=== PATIENT | male | born 1965 | race Hispanic/Latino ===

== ENCOUNTER 2018-12-24 14:31 | Outpatient (CLI) | payer OTHER ==
--- NOTE | 2018-12-24 16:10 | RAD ---
LEFT KNEE TWO VIEWS: 12/24/2018 PROVIDED CLINICAL HISTORY: [facility]. FINDINGS: No evidence for fracture or other acute osseous abnormality. Alignment appears anatomic. Joint spac es appear preserved. Vascular calcifications are seen. IMPRESSION: No evidence for an acute osseous abnormality or significant arthropathy. POS: [facility]
== END 2018-12-24 14:32 | disposition home or self-care (01) ==
LOC: BICRAD 14:31
PROVIDERS: ATTEND Internal Medicine
DX: Z02.71 Encounter for disability determination (principal)

== ENCOUNTER 2023-02-18 17:54 | Inpatient (IN) | payer SELFPAY ==
[2023-02-18] MEDS ORDERED: Acetaminophen 325 MG TAB PO PRN (22:46)
[2023-02-18] MEDS ORDERED: Dextrose 50% Abboject 50 ML SYRINGE SLOW IVP PRN (22:58)
[2023-02-18] MEDS ORDERED: Dextrose 5% in Water 1,000 ML IV PRN (22:58)
[2023-02-18] MEDS ORDERED: HumaLOG 300 UNITS/3 ML VIAL SC PRN (22:58)
[2023-02-18] MEDS ORDERED: Sodium Chloride 0.9% 1,000 ML IV SCH (23:00)
[2023-02-18 23:20] VITALS: BMI 24.3
[2023-02-18] MEDS: CEFAZOLIN 1 GM in Sodium Chloride 0.9% 100 ML IVPB SCH (23:31)
[2023-02-19] MEDS ORDERED: CEFAZOLIN 1 GM VIAL SLOW IVP SCH (06:00)
[2023-02-19 06:30] LABS: #Basophils 0.1 thou/uL (0.0-0.2); #Eosinphils 0.4 thou/uL (0.0-0.7); #Lymphocytes 2.3 thou/uL (1.20-3.40); #Monocytes 0.8 thou/uL (0.11-0.59); %Eosinophils 4.1 % (0.0-10.0); %Lymphocytes 23.8 % (21.0-51.0); %Monocytes 7.9 % (0.0-10.0); %Neutrophils 63.3 % (42.0-75.0); Hemoglobin 13.8 g/dL (14.0-18.0); Mean Corpuscular HGB CONC 33.9 g/dL (32.0-36.0); Mean Corpuscular Hemoglobin 33.5 pg (27.0-31.0); Mean Corpuscular Volume 98.9 fl (78.0-98.0); Mean Platelet Volume 7.6 fL (7.4-10.4); Platelet Count 287 10x3/uL (130-400); RBC Distribution Width 12.9 % (11.5-14.5); Red Blood Cell (RBC) Count 4.12 mill/uL (4.70-6.10); White Blood Cell (WBC) Count 9.5 10x3/uL (4.8-10.8)
[2023-02-19 06:54] LABS: ALT (SGPT) 21 U/L (8-55); AST (SGOT) 23 U/L (5-34); Albumin 3.2 g/dL (3.5-5.0); Alkaline Phosphatase 79 U/L (40-110); Anion Gap 13 mmol/L (10-20); BUN (Urea Nitrogen) 18 mg/dL (8.4-25.7); Bilirubin, Total 0.4 mg/dL (0.2-1.2); Calc. Creatinine Clearance 106 mL/min (70-130); Calcium 8.5 mg/dL (7.8-10.44); Carbon Dioxide 22 mmol/L (22-29); Chloride 107 mmol/L (98-107); Estimated GFR 103; Globulin 2.9 g/dL (2.4-3.5); Glucose 116 mg/dL (70-105); Potassium 3.8 mmol/L (3.5-5.1); Protein, Total 6.1 g/dL (6.0-8.3); Sodium 138 mmol/L (136-145)
[2023-02-19] MEDS: Famotidine 20 MG TAB PO SCH ×2 (09:14→20:16)
[2023-02-19] MEDS: CEFAZOLIN 1 GM in Sodium Chloride 0.9% 100 ML IVPB SCH ×3 (09:14→23:21)
[2023-02-19] MEDS ORDERED: CEFAZOLIN 2 GM in Sodium Chloride 0.9% 100 ML IVPB SCH (16:00)
[2023-02-20 05:18] LABS: #Eosinphils 0.3 thou/uL (0.0-0.7); #Lymphocytes 2.1 thou/uL (1.20-3.40); #Monocytes 0.7 thou/uL (0.11-0.59); #Neutrophils 5.3 thou/uL (1.40-6.50); %Basophils 0.4 % (0.0-1.0); %Eosinophils 3.3 % (0.0-10.0); %Lymphocytes 25.3 % (21.0-51.0); %Monocytes 8.7 % (0.0-10.0); %Neutrophils 62.3 % (42.0-75.0); Hemoglobin 14.2 g/dL (14.0-18.0); Mean Corpuscular HGB CONC 33.4 g/dL (32.0-36.0); Mean Corpuscular Hemoglobin 33.3 pg (27.0-31.0); Mean Corpuscular Volume 99.6 fl (78.0-98.0); Mean Platelet Volume 7.7 fL (7.4-10.4); Platelet Count 298 10x3/uL (130-400); RBC Distribution Width 12.8 % (11.5-14.5); Red Blood Cell (RBC) Count 4.26 mill/uL (4.70-6.10); White Blood Cell (WBC) Count 8.5 10x3/uL (4.8-10.8)
[2023-02-20 05:39] LABS: Anion Gap 13 mmol/L (10-20); BUN (Urea Nitrogen) 14 mg/dL (8.4-25.7); CRP (Inflammatory) Less than 0.50 mg/dL (= or < 0.5); Calc. Creatinine Clearance 113 mL/min (70-130); Calcium 8.8 mg/dL (7.8-10.44); Carbon Dioxide 19 mmol/L (22-29); Chloride 110 mmol/L (98-107); Estimated GFR 105; Glucose 110 mg/dL (70-105); Potassium 4.2 mmol/L (3.5-5.1); Sodium 138 mmol/L (136-145)
[2023-02-20] MEDS: HYDROcodone/Acetaminophen 5/325 mg Tablet PO PRN ×4 (05:39→23:19)
[2023-02-20] MEDS ORDERED: Lidocaine 1% (PF) 30 ML VIAL FS SCH (07:30)
[2023-02-20] MEDS: CEFAZOLIN 1 GM in Sodium Chloride 0.9% 100 ML IVPB SCH ×3 (09:10→23:20)
[2023-02-20] MEDS: Famotidine 20 MG TAB PO SCH ×2 (09:11→20:04)
[2023-02-20] MEDS ORDERED: Morphine 4 MG/ML VIAL ONE (12:30)
[2023-02-20] MEDS: metFORMIN 500 MG TAB PO SCH (17:48)
[2023-02-20] MEDS: Atorvastatin Calcium 20 MG TAB PO SCH (20:04)
[2023-02-20] MEDS: Pregabalin 50 MG CAP PO SCH (20:04)
[2023-02-21 05:41] LABS: Hemoglobin A1c 10.5 % (4.0-6.0)
[2023-02-21] MEDS: HYDROcodone/Acetaminophen 5/325 mg Tablet PO PRN ×3 (05:50→20:07)
[2023-02-21] MEDS: CEFAZOLIN 1 GM in Sodium Chloride 0.9% 100 ML IVPB SCH ×3 (08:45→23:01)
[2023-02-21] MEDS: Alogliptin 6.25 MG TAB PO SCH (08:45)
[2023-02-21] MEDS: Pregabalin 50 MG CAP PO SCH ×2 (08:46→20:08)
[2023-02-21] MEDS: Famotidine 20 MG TAB PO SCH ×2 (08:46→20:07)
[2023-02-21] MEDS: Lisinopril/Hydrochlorothiazide 20/25 mg Tablet PO SCH (08:46)
[2023-02-21] MEDS: Empagliflozin 25 MG TAB PO SCH (08:46)
[2023-02-21] MEDS: Amlodipine 10 MG TAB PO SCH (08:46)
[2023-02-21] MEDS: metFORMIN 500 MG TAB PO SCH ×2 (08:46→18:12)
[2023-02-21] MEDS: Atorvastatin Calcium 20 MG TAB PO SCH (20:07)
[2023-02-22] MEDS: HYDROcodone/Acetaminophen 5/325 mg Tablet PO PRN ×4 (04:05→21:24)
[2023-02-22] MEDS: Amlodipine 10 MG TAB PO SCH (08:47)
[2023-02-22] MEDS: Famotidine 20 MG TAB PO SCH ×2 (08:47→21:24)
[2023-02-22] MEDS: Alogliptin 6.25 MG TAB PO SCH (08:47)
[2023-02-22] MEDS: Lisinopril/Hydrochlorothiazide 20/25 mg Tablet PO SCH (08:47)
[2023-02-22] MEDS: metFORMIN 500 MG TAB PO SCH ×2 (08:47→16:45)
[2023-02-22] MEDS: Empagliflozin 25 MG TAB PO SCH (08:48)
[2023-02-22] MEDS: Pregabalin 50 MG CAP PO SCH ×2 (08:48→21:23)
[2023-02-22] MEDS: CEFAZOLIN 1 GM in Sodium Chloride 0.9% 100 ML IVPB SCH ×2 (08:49→16:45)
[2023-02-22] MEDS ORDERED: Ondansetron PF 4 MG/2 ML Vial IVP PRN (16:30)
[2023-02-22] MEDS ORDERED: Loperamide HCl 2 MG CAP PO PRN (16:30)
[2023-02-22] MEDS ORDERED: Loperamide HCl 2 MG CAP PO SCH (16:30)
[2023-02-22] MEDS ORDERED: Saccharomyces boulardii 250 MG CAP PO SCH (16:45)
[2023-02-22] MEDS: Atorvastatin Calcium 20 MG TAB PO SCH (21:23)
[2023-02-23] MEDS: CEFAZOLIN 1 GM in Sodium Chloride 0.9% 100 ML IVPB SCH ×3 (00:16→17:00)
[2023-02-23] MEDS: metFORMIN 500 MG TAB PO SCH (07:47)
[2023-02-23] MEDS: HYDROcodone/Acetaminophen 5/325 mg Tablet PO PRN ×2 (07:47→14:19)
[2023-02-23] MEDS: Lisinopril/Hydrochlorothiazide 20/25 mg Tablet PO SCH (08:24)
[2023-02-23] MEDS: Amlodipine 10 MG TAB PO SCH (08:25)
[2023-02-23] MEDS: Alogliptin 6.25 MG TAB PO SCH (08:25)
[2023-02-23] MEDS: Famotidine 20 MG TAB PO SCH (08:26)
[2023-02-23] MEDS: Pregabalin 50 MG CAP PO SCH (08:26)
[2023-02-23] MEDS: Empagliflozin 25 MG TAB PO SCH (08:26)
[2023-02-23] MEDS ORDERED: Saccharomyces boulardii 250 MG CAP PO SCH (09:00)
[2023-02-23 17:06] VITALS: BP 107/74; TEMP 98.2
== END 2023-02-23 18:30 | disposition home or self-care (01) | DRG 501 ==
LOC: SURG B 17:54
PROVIDERS: ADMIT Family Medicine; ATTEND Family Medicine
PROC: 0M9P0ZZ Drainage of Left Knee Bursa and Ligament, Open Approach (ICD-10-PCS; principal; 2023-02-20)
DX: M71.062 Abscess of bursa, left knee (principal); L02.416 Cutaneous abscess of left lower limb; M00.062 Staphylococcal arthritis, left knee; E11.65 Type 2 diabetes mellitus with hyperglycemia; E78.00 Pure hypercholesterolemia, unspecified; F41.9 Anxiety disorder, unspecified; F32.A Depression, unspecified; B95.62 Methicillin resistant Staphylococcus aureus infection as the cause of diseases classified elsewhere; Z79.899 Other long term (current) drug therapy
CPT/HCPCS: 36415; 36416; 80048; 80053; 83036; 85025; 86140; 87070; 87077; 87186; 87205; 97139; J0690; J0744; J1815; J2001; J2270; J2405; J3490; J7050

== ENCOUNTER 2023-03-08 18:47 | Inpatient (IN) | payer SELFPAY ==
[~2023-03-08 18:47] MED LIST: Iopamidol-370 76% 500 ML MDV (1 ML CHARGE) ONE
[2023-03-08 20:27] VITALS: BMI 24.5
[2023-03-08] MEDS ORDERED: Ondansetron PF 4 MG/2 ML Vial IVP PRN (21:42)
[2023-03-08] MEDS ORDERED: Acetaminophen 325 MG TAB PO PRN (21:42)
[2023-03-08] MEDS ORDERED: Dextrose 5% in Water 1,000 ML IV PRN (21:52)
[2023-03-08] MEDS ORDERED: HumaLOG 300 UNITS/3 ML VIAL SC PRN ×2 (21:52)
[2023-03-08] MEDS ORDERED: Dextrose 50% Abboject 50 ML SYRINGE SLOW IVP PRN (21:52)
[2023-03-08] MEDS ORDERED: Cefepime 1 GM in Sodium Chloride 0.9% 100 ML IVPB SCH (22:00)
[2023-03-08] MEDS: Sodium Chloride 0.9% 1,000 ML IV SCH (22:48)
[2023-03-08 22:52] LABS: Lactic Acid 1.9 mmol/L (0.5-2.2)
[2023-03-08 22:55] LABS: Magnesium 1.6 mg/dL (1.6-2.6)
[2023-03-08 23:51] LABS: SARS-CoV-2 NAA Rapid Test Not Detected (NotDetected)
[2023-03-09 00:48] LABS: Bacteria/HPF None Seen HPF (None Seen); Bilirubin Negative (Negative); Blood, Urine Negative (Negative); CAUTI Indications for Culture Dysuria,urgency,freq; Clarity Clear (Clear); Glucose, Urine (Dipstick) 500 mg/dL (Negative); Ketone, Urine Trace mg/dL (Negative); Leukocyte Negative Leu/uL (Negative); Nitrite Negative (Negative); Protein, Urine (Dipstick) Negative (Neg-Trace); RBC/HPF 0-3 HPF (0-3); Specific Gravity, Urine 1.022 (1.002-1.036); Squamous Epithelial None Seen HPF (0-3); Urobilinogen Normal mg/dL (Less than 2); WBC/HPF 0-3 HPF (0-3)
[2023-03-09 00:55] LABS: Urine Culture Reflex No No
[2023-03-09 04:49] LABS: #Basophils 0.1 thou/uL (0.0-0.2); #Eosinphils 0.3 thou/uL (0.0-0.7); #Lymphocytes 1.4 thou/uL (1.20-3.40); #Monocytes 0.8 thou/uL (0.11-0.59); #Neutrophils 6.4 thou/uL (1.40-6.50); %Basophils 0.8 % (0.0-1.0); %Eosinophils 3.6 % (0.0-10.0); %Lymphocytes 15.5 % (21.0-51.0); %Monocytes 8.5 % (0.0-10.0); %Neutrophils 71.7 % (42.0-75.0); Hemoglobin 13.7 g/dL (14.0-18.0); Mean Corpuscular HGB CONC 32.9 g/dL (32.0-36.0); Mean Corpuscular Hemoglobin 32.7 pg (27.0-31.0); Mean Corpuscular Volume 99.4 fl (78.0-98.0); Mean Platelet Volume 8.3 fL (7.4-10.4); Platelet Count 191 10x3/uL (130-400); RBC Distribution Width 12.8 % (11.5-14.5); Red Blood Cell (RBC) Count 4.18 mill/uL (4.70-6.10); White Blood Cell (WBC) Count 8.9 10x3/uL (4.8-10.8)
[2023-03-09 05:12] LABS: Anion Gap 12 mmol/L (10-20); BUN (Urea Nitrogen) 17 mg/dL (8.4-25.7); Calc. Creatinine Clearance 94 mL/min (70-130); Carbon Dioxide 17 mmol/L (22-29); Chloride 113 mmol/L (98-107); Estimated GFR 100; Glucose 88 mg/dL (70-105); Magnesium 1.6 mg/dL (1.6-2.6); Sodium 138 mmol/L (136-145)
[2023-03-09] MEDS ORDERED: Magnesium 2 GM/50 ML(in water) 2 GM in Premix Bag 1 BAG IVPB SCH (08:30)
[2023-03-09] MEDS ORDERED: Vancomycin 1.5 GRAM/300 ML BAG 1.5 GM in Premix Bag 1 BAG IVPB SCH (10:00)
[2023-03-09] MEDS ORDERED: Cefepime 2 GM in Sodium Chloride 0.9% 100 ML IVPB SCH (10:00)
[2023-03-09] MEDS ORDERED: diphenhydrAMINE 50 MG/ML VIAL IVP PRN (11:29)
[2023-03-09] MEDS: Sodium Chloride 0.9% 1,000 ML IV SCH ×2 (11:40→15:19)
[2023-03-09] MEDS ORDERED: Mupirocin 2% Ointment 22 GM Tube TOP SCH (11:45)
[2023-03-09] MEDS: Mupirocin 2% Ointment 22 GM Tube TOP SCH ×2 (15:13→20:35)
[2023-03-09] MEDS ORDERED: Sodium Chloride 0.9% 500 ML IV SCH (15:15)
[2023-03-09] MEDS ORDERED: metFORMIN 500 MG TAB PO SCH (17:00)
[2023-03-09] MEDS: Alogliptin 6.25 MG TAB PO SCH (18:20)
[2023-03-09] MEDS ORDERED: HYDROcodone/Acetaminophen 5/325 mg Tablet PO PRN (19:07)
[2023-03-09] MEDS: Pregabalin 50 MG CAP PO SCH (20:34)
[2023-03-09] MEDS: Piperacillin/Tazobactam 3.375 GM in Sodium Chloride 0.9% 100 ML IVPB SCH (20:35)
[2023-03-10] MEDS ORDERED: Piperacillin/Tazobactam 3.375 GM VIAL ONE (04:50)
[2023-03-10] MEDS: Piperacillin/Tazobactam 3.375 GM in Sodium Chloride 0.9% 100 ML IVPB SCH ×2 (04:54→14:52)
[2023-03-10 05:01] LABS: #Eosinphils 1.1 thou/uL (0.0-0.7); #Lymphocytes 1.5 thou/uL (1.20-3.40); #Monocytes 0.8 thou/uL (0.11-0.59); %Basophils 0.3 % (0.0-1.0); %Lymphocytes 14.2 % (21.0-51.0); %Monocytes 7.3 % (0.0-10.0); %Neutrophils 67.3 % (42.0-75.0); Hemoglobin 14.4 g/dL (14.0-18.0); Mean Corpuscular HGB CONC 33.2 g/dL (32.0-36.0); Mean Corpuscular Hemoglobin 33.3 pg (27.0-31.0); Mean Platelet Volume 9.1 fL (7.4-10.4); Platelet Count 160 10x3/uL (130-400); RBC Distribution Width 13.2 % (11.5-14.5); Red Blood Cell (RBC) Count 4.33 mill/uL (4.70-6.10); White Blood Cell (WBC) Count 10.4 10x3/uL (4.8-10.8)
[2023-03-10 05:40] LABS: Anion Gap 14 mmol/L (10-20); BUN (Urea Nitrogen) 11 mg/dL (8.4-25.7); Calc. Creatinine Clearance 90 mL/min (70-130); Calcium 8.1 mg/dL (7.8-10.44); Carbon Dioxide 12 mmol/L (22-29); Chloride 116 mmol/L (98-107); Estimated GFR 99; Glucose 85 mg/dL (70-105); Magnesium 1.7 mg/dL (1.6-2.6); Potassium 4.8 mmol/L (3.5-5.1); Sodium 137 mmol/L (136-145)
[2023-03-10] MEDS: Sodium Chloride 0.9% 1,000 ML IV SCH ×2 (07:39→14:52)
[2023-03-10] MEDS ORDERED: Atorvastatin Calcium 20 MG TAB PO SCH (09:00)
[2023-03-10] MEDS ORDERED: Sodium Bicarbonate Tab 325 MG TAB PO SCH (09:00)
[2023-03-10] MEDS: Alogliptin 6.25 MG TAB PO SCH ×2 (09:31→17:23)
[2023-03-10] MEDS: Pregabalin 50 MG CAP PO SCH (09:31)
[2023-03-10] MEDS: Mupirocin 2% Ointment 22 GM Tube TOP SCH ×2 (09:32→15:23)
[2023-03-10 18:07] VITALS: BP 95/64; TEMP 97.5
== END 2023-03-10 18:09 | disposition home or self-care (01) | DRG 872 ==
LOC: 2NO 18:47
PROVIDERS: ADMIT Internal Medicine; ATTEND Family Medicine
DX: A41.9 Sepsis, unspecified organism (principal); N17.9 Acute kidney failure, unspecified; E11.9 Type 2 diabetes mellitus without complications; I10 Essential (primary) hypertension; Z20.822 Contact with and (suspected) exposure to COVID-19; E83.42 Hypomagnesemia; N41.9 Inflammatory disease of prostate, unspecified; E78.5 Hyperlipidemia, unspecified; F41.9 Anxiety disorder, unspecified; F32.A Depression, unspecified; Z90.49 Acquired absence of other specified parts of digestive tract; Z79.899 Other long term (current) drug therapy; Z98.890 Other specified postprocedural states
CPT/HCPCS: 36415; 36416; 74177; 80048; 81001; 83605; 83735; 85025; 87086; J0692; J1200; J1650; J2543; J3370; J3475; J3490; J7030; J7050; Q9967